=== PATIENT | male | born 1975 | race Caucasian/White ===

== ENCOUNTER 2018-04-14 15:17 | Emergency (ER) | payer OTHER ==
[~2018-04-14] VITALS: Ht 172.7 cm; Wt 104.3 kg
[2018-04-14 15:25] VITALS: Ht 172.7 cm; Wt 104.3 kg
[2018-04-14 18:17] VITALS: BP 136/91
== END 2018-04-14 18:17 | disposition home or self-care (01) ==
LOC: ED 15:17
DX: H11.432 Conjunctival hyperemia, left eye (principal); I10 Essential (primary) hypertension

== ENCOUNTER 2018-05-31 18:09 | Emergency (ER) | payer OTHER ==
[~2018-05-31] VITALS: Ht 177.8 cm; Wt 102.0 kg
[2018-05-31 18:29] VITALS: Ht 177.8 cm; Wt 102.0 kg
[2018-05-31 19:32] VITALS: BP 149/98
== END 2018-05-31 19:32 | disposition home or self-care (01) ==
LOC: ED 18:09
DX: K64.4 Residual hemorrhoidal skin tags (principal)